=== PATIENT | male | born 1955 | race Caucasian/White ===

== ENCOUNTER → 2020-05-12 | Outpatient (CLI) | payer MEDICARE ==
[2020-05-13 06:46] LABS: HEMOGLOBIN 6.3 gm/dl (14.0-17.5)
== END ==
LOC: LAB 17:45
PROVIDERS: Internal Medicine Hematology & Oncology
DX: D64.9 Anemia, unspecified (principal)
CPT/HCPCS: 85014; 85018; 86850; 86900; 86901; 86920; P9016

== ENCOUNTER → 2020-05-13 | Outpatient (CLI) | payer MEDICARE ==
[~2020-05-13] VITALS: Ht 172.7 cm; Wt 112.5 kg
== END ==
LOC: OPSV 07:30
DX: D64.9 Anemia, unspecified (principal)
CPT/HCPCS: 36430; J1940; J7050; P9016

== ENCOUNTER 2020-11-01 08:24 | Emergency (ER) | payer MEDICARE ==
[2020-11-01 09:32] LABS: HEMOGLOBIN 8.4 gm/dl (14.0-17.5); RED BLOOD COUNT 2.91 M/UL (4.20-5.50); WHITE BLOOD COUNT 5.4 K/UL (4.5-11.0)
[2020-11-01 09:51] LABS: BUN/CREATININE RATIO 10 (0-10)
[2020-11-01] MEDS ORDERED: PERCOCET 5-3251 EACH PO (12:29)
[2020-11-01] MEDS ORDERED: OMNICEF 300 MG300 MG PO (13:24)
[2020-11-04] MEDS ORDERED: DURAGESIC1 EAC2 TD (11:16)
[2020-11-17] MEDS ORDERED: DILAUDID8 MG PO (11:13)
== END 2020-11-01 13:08 | disposition home or self-care (01) ==
LOC: ER1 08:24
PROVIDERS: Physician Assistant
DX: N13.30 Unspecified hydronephrosis (principal); C61 Malignant neoplasm of prostate; I48.91 Unspecified atrial fibrillation; N18.9 Chronic kidney disease, unspecified; I12.9 Hypertensive chronic kidney disease with stage 1 through stage 4 chronic kidney disease, or unspecified chronic kidney disease; F17.220 Nicotine dependence, chewing tobacco, uncomplicated; Z79.899 Other long term (current) drug therapy
CPT/HCPCS: 71045; 80053; 81001; 82550; 82553; 83605; 83690; 83874; 84484; 85025; 87077; 87086; 87186; 93005; 96374; 96375; 96376; 99284; J0696; J1170; J2405; J7030

== ENCOUNTER 2020-11-23 04:26 | Emergency (ER) | payer MEDICARE ==
[~2020-11-23 04:26] MED LIST: DILAUDID8 MG PO; DURAGESIC1 EAC2 TD; OMNICEF 300 MG300 MG PO; PERCOCET 5-3251 EACH PO
[2020-11-23 05:27] LABS: HEMOGLOBIN 8.8 gm/dl (14.0-17.5); RED BLOOD COUNT 2.99 M/UL (4.20-5.50); WHITE BLOOD COUNT 7.6 K/UL (4.5-11.0)
[2020-11-23] MEDS ORDERED: ZOFRAN ODT 4 MG4 MG SL (08:43)
[2020-11-23] MEDS ORDERED: OMNICEF 300 MG300 MG PO (08:43)
[2020-11-23] MEDS ORDERED: CEFDINIR300 MG PO (11:11)
== END 2020-11-23 09:17 | disposition home or self-care (01) ==
LOC: ER1 04:26
PROVIDERS: Physician Assistant
DX: N39.0 Urinary tract infection, site not specified (principal); I12.9 Hypertensive chronic kidney disease with stage 1 through stage 4 chronic kidney disease, or unspecified chronic kidney disease; N18.9 Chronic kidney disease, unspecified; C67.9 Malignant neoplasm of bladder, unspecified
CPT/HCPCS: 80053; 81001; 83605; 83690; 83735; 85025; 85652; 86140; 87077; 87086; 87186; 96374; 99284; J0690; J0696

== ENCOUNTER 2020-11-28 19:39 | Inpatient (IN) | payer MEDICARE ==
[~2020-11-28] VITALS: Ht 172.7 cm; Wt 101.2 kg
[~2020-11-28 19:39] MED LIST changes: +CEFDINIR300 MG PO; +ZOFRAN ODT 4 MG4 MG SL
[2020-11-28 20:55] LABS: HEMOGLOBIN 8.7 gm/dl (14.0-17.5); WHITE BLOOD COUNT 8.9 K/UL (4.5-11.0)
[2020-11-29] MEDS ORDERED: OMEPRAZOLE40 MG PO (11:11)
[2020-11-29] MEDS ORDERED: ALPRAZOLAM1 MG PO (11:15)
[2020-11-29] MEDS ORDERED: PURELAX510 GM PO (11:20)
[2020-11-29] MEDS ORDERED: DIGOXIN125 MCG PO (11:20)
[2020-11-29] MEDS ORDERED: DILTIAZEM 24HR300 M1 PO (11:21)
[2020-11-29] MEDS ORDERED: FUROSEMIDE40 MG PO (11:22)
[2020-11-29] MEDS ORDERED: POTASSIUM CHLO20 ME1 PO (11:23)
[2020-11-29] MEDS ORDERED: PRAVASTATIN SOD40 MG PO (11:24)
[2020-11-29] MEDS ORDERED: SERTRALINE HCL100 MG PO (11:24)
[2020-11-29] MEDS ORDERED: LEVOTHYROXINE75 MCG PO (11:24)
[2020-11-29] MEDS ORDERED: BREO ELLIPTA 21 EACH INH (11:25)
[2020-11-29] MEDS ORDERED: MUCINEX DM ER1 EAC1 PO (11:26)
[2020-11-29 12:46] LABS: HEMOGLOBIN 8.7 gm/dl (14.0-17.5); RED BLOOD COUNT 2.97 M/UL (4.20-5.50)
[2020-11-29 14:20] LABS: CRYPTOCOCCUS NEOFORMANS/GATTII Not Detected (Negative); CYTOMEGALOVIRUS Not Detected (Negative); ENTEROVIRUS Not Detected (Negative); ESCHERICHIA COLI K1 Not Detected (Negative); HAEMOPHILUS INFLUENZAE Not Detected (Negative); HERPES SIMPLEX VIRUS 1 Not Detected (Negative); HERPES SIMPLEX VIRUS 2 Not Detected (Negative); HUMAN HERPESVIRUS 6 Not Detected (Negative); HUMAN PARECHOVIRUS Not Detected (Negative); LISTERIA MONOCYTOGENES Not Detected (Negative); NEISERRIA MENINGITIDIS Not Detected (Negative); STREPTOCOCCUS AGALACTIAE Not Detected (Negative); STREPTOCOCCUS PNEUMONIAE Not Detected (Negative); VARICELLA ZOSTER VIRUS Not Detected (Negative)
[2020-11-29 15:22] LABS: WBC (AUTOMATED 0 10^3 (0-5)
[2020-11-30 05:47] LABS: HEMOGLOBIN 8.5 gm/dl (14.0-17.5); RED BLOOD COUNT 2.87 M/UL (4.20-5.50); WHITE BLOOD COUNT 7.8 K/UL (4.5-11.0)
[2020-12-01 05:24] LABS: RED BLOOD COUNT 2.72 M/UL (4.20-5.50); WHITE BLOOD COUNT 7.8 K/UL (4.5-11.0)
[2020-12-02 02:49] LABS: HEMOGLOBIN 8.6 gm/dl (14.0-17.5); RED BLOOD COUNT 2.95 M/UL (4.20-5.50); WHITE BLOOD COUNT 8.1 K/UL (4.5-11.0)
[2020-12-03 02:47] LABS: HEMOGLOBIN 8.4 gm/dl (14.0-17.5); RED BLOOD COUNT 2.91 M/UL (4.20-5.50); WHITE BLOOD COUNT 6.1 K/UL (4.5-11.0)
[2020-12-04 02:38] LABS: HEMOGLOBIN 7.3 gm/dl (14.0-17.5); WHITE BLOOD COUNT 5.4 K/UL (4.5-11.0)
[2020-12-04 02:41] LABS: RED BLOOD COUNT 2.52 M/UL (4.20-5.50)
[2020-12-05 04:11] LABS: RED BLOOD COUNT 2.32 M/UL (4.20-5.50); WHITE BLOOD COUNT 5.9 K/UL (4.5-11.0)
[2020-12-05 04:19] LABS: HEMOGLOBIN 6.9 gm/dl (14.0-17.5)
[2020-12-05 21:48] LABS: HEMOGLOBIN 8.2 gm/dl (14.0-17.5)
[2020-12-06 03:40] LABS: HEMOGLOBIN 7.5 gm/dl (14.0-17.5); WHITE BLOOD COUNT 6.7 K/UL (4.5-11.0)
[2020-12-06 03:43] LABS: RED BLOOD COUNT 2.6 M/UL (4.20-5.50)
[2020-12-07 09:17] LABS: HEMOGLOBIN 8.2 gm/dl (14.0-17.5); RED BLOOD COUNT 2.77 M/UL (4.20-5.50); WHITE BLOOD COUNT 5.1 K/UL (4.5-11.0)
[2020-12-07] MEDS ORDERED: LOPRESSOR 50 MG50 MG PO (13:08)
[2020-12-07] MEDS ORDERED: ELIQUIS 5 MG TAB5 MG PO (13:08)
[2020-12-07] MEDS ORDERED: FLOMAX 0.4 MG0.4 MG PO (13:08)
[2020-12-07] MEDS ORDERED: FERROUS SULFAT325 M2 PO (13:08)
[2020-12-07] MEDS ORDERED: ASPIRIN EC81 MG PO (13:32)
[2020-12-07] MEDS ORDERED: KEPPRA500 MG PO (13:32)
[2020-12-07] MEDS ORDERED: HYDRALAZINE HCL25 MG PO (13:42)
[2020-12-07] MEDS ORDERED: SPIRIVA18 MCG INH (13:42)
[2020-12-07] MEDS ORDERED: CHRONULAC20 GM/30 M PO (13:51)
== END 2020-12-07 17:01 | disposition home health service (06) | DRG 698 ==
LOC: ER1 19:39 → PROG CARE 11-29 00:50 → CDU 11-29 00:50 → CCU 11-29 11:43 → PROG CARE 12-01 22:00
PROVIDERS: Internal Medicine; Internal Medicine Nephrology; Physician Assistant Medical; ADMIT Internal Medicine
PROC: 009U3ZZ Drainage of Spinal Canal, Percutaneous Approach (ICD-10-PCS; 2020-11-29)
PROC: B01B1ZZ Fluoroscopy of Spinal Cord using Low Osmolar Contrast (ICD-10-PCS; 2020-11-29)
PROC: 4A10X4Z Monitoring of Central Nervous Electrical Activity, External Approach (ICD-10-PCS; 2020-11-29)
PROC: 30233N1 Transfusion of Nonautologous Red Blood Cells into Peripheral Vein, Percutaneous Approach (ICD-10-PCS; principal; 2020-12-05)
DX: T83.511A Infection and inflammatory reaction due to indwelling urethral catheter, initial encounter (principal); G92 Toxic encephalopathy; N17.9 Acute kidney failure, unspecified; F11.20 Opioid dependence, uncomplicated; I48.21 Permanent atrial fibrillation; J96.11 Chronic respiratory failure with hypoxia; E87.0 Hyperosmolality and hypernatremia; E87.2 Acidosis; N18.4 Chronic kidney disease, stage 4 (severe); N13.6 Pyonephrosis; Z20.822 Contact with and (suspected) exposure to COVID-19; I12.9 Hypertensive chronic kidney disease with stage 1 through stage 4 chronic kidney disease, or unspecified chronic kidney disease; E86.0 Dehydration; C67.9 Malignant neoplasm of bladder, unspecified; G40.909 Epilepsy, unspecified, not intractable, without status epilepticus; I48.0 Paroxysmal atrial fibrillation; D50.9 Iron deficiency anemia, unspecified; G89.29 Other chronic pain; B96.5 Pseudomonas (aeruginosa) (mallei) (pseudomallei) as the cause of diseases classified elsewhere; E03.9 Hypothyroidism, unspecified; D63.1 Anemia in chronic kidney disease; I25.10 Atherosclerotic heart disease of native coronary artery without angina pectoris; I25.2 Old myocardial infarction; Z99.81 Dependence on supplemental oxygen; Z79.82 Long term (current) use of aspirin; Z90.49 Acquired absence of other specified parts of digestive tract; Z79.01 Long term (current) use of anticoagulants; Z85.46 Personal history of malignant neoplasm of prostate; Z98.890 Other specified postprocedural states; Z83.3 Family history of diabetes mellitus; Z84.89 Family history of other specified conditions; Z87.891 Personal history of nicotine dependence; Z82.49 Family history of ischemic heart disease and other diseases of the circulatory system; Z78.1 Physical restraint status; Y83.9 Surgical procedure, unspecified as the cause of abnormal reaction of the patient, or of later complication, without mention of misadventure at the time of the procedure
CPT/HCPCS: 36415; 36430; 36600; 70450; 70551; 71045; 80048; 80053; 80307; 81001; 82009; 82140; 82436; 82550; 82553; 82570; 82746; 82803; 83540; 83550; 83605; 83735; 83874; 84100; 84133; 84146; 84156; 84300; 84439; 84443; 84484; 85014; 85018; 85025; 85027; 85610; 86850; 86900; 86901; 86920; 87040; 87077; 87086; 87186; 87483; 89051; 92610; 93005; 94640; 94660; 94664; 94760; 95816; 96374; 96375; 96376; 97110; 97110-GP-CQ; 97163; 97166; 97530; 97530-GP-CQ; 99285; C9113; J0133; J0360; J0696; J1170; J1200; J1644; J1953; J2060; J2185; J2250; J2405; J2550; J3411; J7030; J7040; J7050; P9016; U0002